=== PATIENT | female | born 2000 | race Caucasian/White ===

== ENCOUNTER → 2018-05-25 19:14 | Emergency (ER) | payer OTHER ==
[2018-05-25 19:22] VITALS: BP 130/73
--- NOTE | 2018-05-25 20:13 | ED ---
Neck Pain - HPI Summary HPI Summary: 18-year-old female presents with head injury and neck injury yesterday. She fell the top of the rock wall yesterday. She denies any loss consciousness. She states that her chin went to her chest. She's been having neck pain all day. She admits to difficulties concentrating. No loss conscious. No nausea or vomiting. She admits to some dizziness no change in vision. States though she's been having photophobia and phonophobia. No other injury. She denies any lower back pain. No weakness. No loss or bladder. No saddle anesthesia. No medical conditions. states neck is bothering her more than her head. - History of Current Complaint Chief Complaint: EDNeckComplaint Stated Complaint: FALL/POSS CONCUSSION Time Seen by Provider: 05/25/18 19:41 Pain Intensity: 6 - Allergies/Home Medications Allergies/Adverse Reactions: Allergies Allergy/AdvReac Type Severity Reaction Status Date / Time tree nut Allergy Severe Anaphylatic Verified 05/25/18 19:23 Shock coconut AdvReac Rash Verified 05/25/18 19:23 peanut AdvReac Rash Verified 05/25/18 19:23 sesame seed AdvReac Rash Verified 05/25/18 19:23 Home Medications: Home Medications Albuterol inh POWDER (NF) [Proair Respiclick] 1 puff INH Q8H 05/25/18 [History Confirmed 05/25/18] Budesonide/Formote 160/4.5(NF) [Symbicort 160/4.5 (NF)] 2 puff INH BID 05/25/18 [History Confirmed 05/25/18] PMH/Surg Hx/FS Hx/Imm Hx Endocrine/Hematology History: Denies: Hx Anticoagulant Therapy Respiratory History: Denies: Hx Asthma Infectious Disease History: No Infectious Disease History: Denies: Traveled Outside the [place] in Last 30 Days - Family History Known Family History: Negative: Seizure Disorder - Social History Substance Use Type: Reports: None Smoking Status (MU): Never Smoked Tobacco Review of Systems Negative: Fever Negative: Chest Pain Negative: Shortness Of Breath Positive: Myalgia - neck pain All Other Systems Reviewed And Are Negative: Yes Physical Exam Triage Information Reviewed: Yes Vital Signs On Initial Exam: Initial Vitals Temp Pulse Resp BP Pulse Ox 98.5 F 80 15 130/73 100 05/25/18 19:19 05/25/18 19:19 05/25/18 19:19 05/25/18 19:19 05/25/18 19:19 Vital Signs Reviewed: Yes Appearance: Positive: Well-Appearing Skin: Positive: Warm, Dry Head/Face: Positive: Normal Head/Face Inspection, Other - no step off, racoon eyes, lucas sign Eyes: Positive: Normal, EOMI, BEATRIZ, Conjunctiva Clear ENT: Positive: Normal ENT inspection, Pharynx normal, TMs normal Neck: Positive: Other: - tenderness neck Respiratory/Lung Sounds: Positive: Clear to Auscultation, Breath Sounds Present Cardiovascular: Positive: Normal, RRR Abdomen Description: Positive: Nontender, Soft Bowel Sounds: Positive: Present Musculoskeletal: Positive: Normal Neurological: Positive: Sensory/Motor Intact, Alert, Oriented to Person Place, Time, CN Intact II-III Psychiatric: Positive: Normal Diagnostics - Vital Signs Vital Signs Temp Pulse Resp BP Pulse Ox 05/25/18 19:19 98.5 F 80 15 130/73 100 - Laboratory Lab Statement: Any lab studies that have been ordered have been reviewed, and results considered in the medical decision making process. - CT neck CT Interpretation: No Acute Changes CT Interpretation Completed By: Radiologist Neck Course/Dx - Course Course Of Treatment: 18-year-old female presents with head injury and neck injury yesterday. She [place] top of the [place]. She denies any loss consciousness. She states that her chin went to her chest. She's been having neck pain all day. She admits to difficulties concentrating. No loss conscious. No nausea or vomiting. She admits to some dizziness no change in vision. States though she's been having photophobia and phonophobia. No other injury. She denies any lower back pain. No weakness. No loss or bladder. No saddle anesthesia. No medical conditions. on exam has tenderness to posterior neck. is placed in c-collar from [place]. CT neck normal. normal neuro exam. no indication for CT of brain at this time as no vomiting or LOC. patient understand and agrees with plan. - Diagnoses Differential Dx/HQI/PQRI: Positive: Sprain, Strain, Trauma Provider Diagnoses: Neck injury, Head injury Discharge - Sign-Out/Discharge Documenting (check all that apply): Patient Departure - Discharge Plan Condition: Good Disposition: HOME Patient Education Materials: Cervical Strain (ED), Concussion (ED) Referrals: No Primary Care Phys,NOPCP [Primary Care Provider] - Additional Instructions: Place ice on area as needed Take Tylenol or ibuprofen for headache every 6 hours Modify activities as tolerated Follow up with anais within 5 days Return to ED if develop vomiting, severe headache, or any new or worsening symptoms - Billing Disposition and Condition Condition: GOOD Disposition: Home
--- NOTE | 2018-05-25 21:23 | RAD ---
EXAM: CT Cervical Spine Without Intravenous Contrast CLINICAL HISTORY: 18 years old, female; Injury or trauma; Fall; Initial encounter; Concussion /head injury; Additional info: Neck pain TECHNIQUE: Axial computed tomography images of the cervical spine without intravenous contrast. All CT scans at this facility use at least one of these dose optimization techniques: automated exposure control; mA and/or kV adjustment per patient size (includes targeted exams where dose is matched to clinical indication); or iterative reconstruction. Coronal and sagittal reformatted images were created and reviewed. COMPARISON: No relevant prior studies available. FINDINGS: Vertebrae: Unremarkable. No acute fracture. Discs/spinal canal/neural foramina: No acute findings. No spinal canal stenosis. Soft tissues: Unremarkable. Lung apices: Unremarkable as visualized. IMPRESSION: 1. Normal CT of the cervical spine.
== END | disposition home or self-care (01) ==
LOC: ED 19:14
DX: S09.90XA Unspecified injury of head, initial encounter (principal); S19.9XXA Unspecified injury of neck, initial encounter; W17.89XA Other fall from one level to another, initial encounter; Y92.9 Unspecified place or not applicable
CPT/HCPCS: 72125; 99282

== ENCOUNTER 2019-06-09 11:03 | Emergency (ER) | payer OTHER ==
--- NOTE | 2019-06-09 11:48 | ED ---
Abdominal Pain/Female - HPI Summary HPI Summary: This patient is a 19 year old F presenting to ED with a chief complaint of abdominal pain since 06/06/19. She has been having difficulty eating since she gets nauseous. The pain waxes and wanes and starts in the RLQ and radiates to the epigastric area. Patient started her menstrual cycle on 06/04/19, but she reports this pain is different from period cramps. Her menstrual cycle is usually 3-5 days. She denies having more vaginal discharge than normal. She still has her appendix and is not sexually active. Patient also reports right ear pain. She went to a concert yesterday and thinks she has fluid in her right ear. The patient rates the pain 6/10 in severity. Symptoms aggravated by food. Symptoms alleviated by nothing. Patient reports subjective fever, chills. Patient denies back pain. - History of Current Complaint Chief Complaint: EDAbdPain Stated Complaint: ABDOMINAL PAIN FOR 3 DAYS PER PT Hx Obtained From: Patient Onset/Duration: Lasting Days - Since 06/06/19, Still Present Timing: Constant - Intensity waxes and wanes Severity Initially: Moderate Severity Currently: Moderate Pain Intensity: 6 Pain Scale Used: 0-10 Numeric Location: Discrete At: RLQ Radiates: Yes Radiates to: Other - Epigastric Aggravating Factor(s): Food Alleviating Factor(s): Nothing Associated Signs and Symptoms: Positive: Fever, Decreased Appetite, Nausea, Other: - Chills, right earache. Negative: Back Pain, Vaginal Discharge Allergies/Adverse Reactions: Allergies Allergy/AdvReac Type Severity Reaction Status Date / Time tree nut Allergy Severe Anaphylatic Verified 06/09/19 11:24 Shock coconut AdvReac Rash Verified 06/09/19 11:24 peanut AdvReac Rash Verified 06/09/19 11:24 sesame seed AdvReac Rash Verified 06/09/19 11:24 Home Medications: Home Medications Ibuprofen TAB* [Advil TAB*] 200 mg PO Q6H PRN 06/09/19 [History Confirmed ] PMH/Surg Hx/FS Hx/Imm Hx Endocrine/Hematology History: Denies: Hx Anticoagulant Therapy, Hx Diabetes Cardiovascular History: Denies: Hx Hypertension, Hx Pacemaker/ICD Respiratory History: Denies: Hx Asthma History: Denies: Hx Renal Disease Sensory History: Denies: Hx Hearing Aid Psychiatric History: Denies: Hx Panic Disorder - Surgical History Surgery Procedure, Year, and Place: Denies - Immunization History Date of Tetanus Vaccine: utd Date of Influenza Vaccine: none Infectious Disease History: No Infectious Disease History: Denies: Traveled Outside the [place] in Last 30 Days - Family History Known Family History: Negative: Hypertension, Diabetes, Seizure Disorder - Social History Alcohol Use: Rare Hx Substance Use: No Substance Use Type: Reports: None Hx Tobacco Use: No Smoking Status (MU): Never Smoked Tobacco Review of Systems Positive: Fever - Subjetive, Chills Positive: Ear Ache - Right Positive: Abdominal Pain, Nausea Negative: discharge Musculoskeletal: Negative - Back pain All Other Systems Reviewed And Are Negative: Yes Physical Exam - Summary Physical Exam Summary: VITAL SIGNS: Reviewed. GENERAL: Patient is a well-developed and nourished female who is lying comfortable in the stretcher. Patient is not in any acute respiratory distress. HEAD AND FACE: Normocephalic and atraumatic. EYES: PERRLA, EOMI x 2, No injected conjunctiva. EARS: Hearing grossly intact. Right tympanic membrane erythema, but no bulging. MOUTH: Oropharynx within normal limits. NECK: Supple, trachea is midline, no adenopathy, no JVD. CHEST: Symmetric, no tenderness at palpation. LUNGS: Clear to auscultation bilaterally. No wheezing or crackles. CVS: RRR, S1 and S2 present, no murmurs or gallops appreciated. ABDOMEN: lower abdominal tenderness without rebound, more in the right side than the left EXTREMITIES: FROM in all major joints, no edema, no cyanosis or clubbing. NEURO: Alert and oriented x 3. No acute neurological deficits. Speech is normal. SKIN: Dry and warm. Triage Information Reviewed: Yes Vital Signs On Initial Exam: Initial Vitals Temp Pulse Resp BP Pulse Ox 99.0 F 89 16 113/73 99 06/09/19 11:20 06/09/19 11:20 06/09/19 11:20 06/09/19 11:20 06/09/19 11:20 Vital Signs Reviewed: Yes Diagnostics - Vital Signs Vital Signs Temp Pulse Resp BP Pulse Ox 06/09/19 11:20 99.0 F 89 16 113/73 99 - Laboratory Result Diagrams: 06/09/19 11:59 06/09/19 11:59 Lab Statement: Any lab studies that have been ordered have been reviewed, and results considered in the medical decision making process. - CT A/P CT Interpretation Completed By: Radiologist Summary of CT Findings: #. Normal appendix documented. No pathologic process of the alimentary tract evident. #. Negative for obstructive uropathy. #. No acute abdominal pelvic pathologic process evident. Dr. Negron has reviewed this radiology report. Re-Evaluation - Re-Evaluation First Eval Re-Evaluation Time: 14:47 Change: Improved Comment: Patient reports feeling better. She declines a pelvic exam. Discussed results with patient. Patient will be discharged home with dx of abdominal pain and otitis media. Patient understands and agrees with this plan. Abdominal Pain Fem Course/Dx - Course Course Of Treatment: Patient is a 19-year-old female who presents to the emergency department with a chief complaint of lower abdominal pain right more than the left. Patient also having left ear pain since last night. Initially, IV access obtained. No pain medications required now. Blood work without any significant abnormality except for potassium of 3.4, urinalysis with 1+ protein , 2+ ketones, 2+ blood. Patient also has squamous epithelial cells present therefore I believe that this is a contaminant. Physical exam: the patient is dehydrated therefore the patient was given IV fluids. Abdominopelvic CT impression: normal appendix documented. No pathologic process of the alimentary tract evident. Negative for obstructive uropathy. No acute abdominal pelvic pathology process evident. After the patient was hydrated the patients symptoms are significantly improved. However she continues to have ear pain therefore the patient will be given a prescription for Augmentin for otitis media. Patient declined a pelvic exam. I discussed all the findings and test results with the patient. Patient was instructed to return to the emergency room immediately if any of the symptoms return or worsen. They were explained the possibility of an early abdominal pathology which was not detected at this time despite the physical exam and testing. They understand and agree. Abdominal exam before discharge: Soft, NT. No signs of distention. BS present. No rebound no guarding, and no masses palpated. Patient is alert and oriented and hemodynamically stable. Patient is to follow up with primary care physician in the next 2 to 3 days. Patient agrees and understands. - Diagnoses Provider Diagnoses: Abdominal pain, Otitis media Discharge ED - Sign-Out/Discharge Documenting (check all that apply): Patient Departure - Discharge Patient Received Moderate/Deep Sedation with Procedure: No - Discharge Plan Condition: Stable Disposition: HOME Prescriptions: Amoxicillin PO (*) [Amoxicillin 875 MG (*)] 875 mg PO BID #14 tab Patient Education Materials: Ear Infection (ED), Abdominal Pain (ED) Referrals: Ashanti Sinha BAG PRESSER [Primary Care Provider] - 3 Days Additional Instructions: FOLLOW UP WITH YOUR PRIMARY CARE PROVIDER WITHIN ONE WEEK. RETURN TO THE ED FOR ANY WORSENING OR NEW SYMPTOMS. - Billing Disposition and Condition Condition: STABLE Disposition: Home - Attestation Statements Document Initiated by Scribe: Yes Documenting Scribe: Holland Chowdary Provider For Whom Heriberto is Documenting (Include Credential): Hieu Negron MD Scribe Attestation: Holland Carcamo, scribed for Hieu Negron MD on 06/10/19 at 1837. Scribe Documentation Reviewed: Yes Provider Attestation: The documentation as recorded by the Holland vallejo accurately reflects the service I personally performed and the decisions made by Hieu espinosa MD Status of Scribe Document: Viewed
[2019-06-09 12:13] LABS: ABS Eosinophils 0.2 10^3/ul (0-0.6); ABS Lymphocytes 1.6 10^3/ul (1.0-4.8); ABS Monocytes 0.7 10^3/ul (0-0.8); ABS Neutrophils 5.8 10^3/ul (1.5-7.7); Eosinophil % 2.2 %; Hematocrit 39 % (35-47); Hemoglobin 13.2 g/dL (12.0-16.0); Lymphocyte % 19.3 %; Mean Corpuscular HGB Conc 34 g/dL (31-36); Mean Corpuscular Hemoglobin 32 pg (27-31); Mean Corpuscular Volume 94 fL (80-97); Mean Platelet Volume 7.4 fL (7.4-10.4); Nucleated Red Blood Cells % 0.1; Platelet Count 202 10^3/uL (150-450); Red Cell Distribution Width 12 % (10-15); White Blood Count 8.4 10^3/uL (3.5-10.8)
[2019-06-09 12:25] LABS: Urine Appearance Cloudy; Urine Bacteria Absent (Absent); Urine Bilirubin Negative (Negative); Urine Blood 3+ (Negative); Urine Color Yellow; Urine Glucose Negative (Negative); Urine Ketones 2+ (Negative); Urine Nitrite Negative (Negative); Urine Protein 1+(30 mg/dL) (Negative); Urine Red Blood Cell 3+(>10/hpf) (Absent); Urine Specific Gravity 1.025 (1.010-1.030); Urine Squamous Epithelial Cell Present (Absent); Urine Urobilinogen Negative (Negative); Urine White Blood Cell Trace(0-5/hpf) (Absent)
[2019-06-09] MEDS ORDERED: NS 0.9% 1000 ML** 1,000 ML IV ONE (12:32)
[2019-06-09 12:37] LABS: ALT 10 U/L (7-52); AST 17 U/L (13-39); Albumin 4.4 g/dL (3.2-5.2); Albumin/Globulin Ratio 1.6 (1-3); Alkaline Phosphatase 61 U/L (34-104); Anion Gap 7 mmol/L (2-11); BUN/Creatinine Ratio 14.3 (8-20); Blood Urea Nitrogen 10 mg/dL (6-24); C Reactive Protein 4.27 mg/L (<8.01); CO2 Carbon Dioxide 30 mmol/L (22-32); Calcium 9.4 mg/dL (8.6-10.3); Chloride 104 mmol/L (101-111); EGFR African American 127.8 (>60); EGFR Non-African American 105.6 (>60); Globulin 2.8 g/dL (2-4); Glucose 88 mg/dL (70-100); Potassium 3.4 mmol/L (3.5-5.0); Sodium 141 mmol/L (135-145); Total Protein 7.2 g/dL (6.4-8.9)
[2019-06-09 12:43] LABS: HCG Pregnancy < 0.60 mIU/mL
[2019-06-09] MEDS ORDERED: Iohexol 300* (CONTRAST) 10 ML SDV IV ONE (13:32)
[2019-06-09] MEDS ORDERED: Ketorolac INJ* 30 MG/ML 1 ML VIAL IV PUSH ONE (14:46)
[2019-06-09 15:18] VITALS: BP 121/76
== END 2019-06-09 15:17 | disposition home or self-care (01) ==
LOC: ED 11:03
DX: R10.13 Epigastric pain (principal); R10.31 Right lower quadrant pain; R10.32 Left lower quadrant pain; H66.91 Otitis media, unspecified, right ear; E86.0 Dehydration; R50.9 Fever, unspecified; R11.0 Nausea; Z91.018 Allergy to other foods; Z91.010 Allergy to peanuts
CPT/HCPCS: 36415; 74177; 80053; 81003; 81015; 83605; 83690; 84702; 85025; 86140; 87086; 96361; 96374; 99282; J1885; Q9967